=== PATIENT | male | born 1995 | race Caucasian/White ===

== ENCOUNTER → 2020-05-23 03:24 | Outpatient (REF) | payer BC, MEDICAID, SELFPAY | LOC: EDREF 03:24 | PROVIDERS: PCP Pediatrics | DX: R69 Illness, unspecified (principal) ==

== ENCOUNTER 2022-02-20 16:36 | Emergency (ER) | payer MEDICAID, SELFPAY ==
[2022-02-20 16:36] VITALS: BP 133/97; PULSE 104; RESP 18; TEMP 36.6; O2SAT 96; BMI 25.7
--- NOTE | 2022-02-20 16:55 | RAD_ITS ---
STUDY: LEFT HAND X-RAY SERIES OF 1706 HOURS ON 02/20/2022 REASON FOR EXAM: 26-year-old male who sustained a laceration of fingers from tremors. TECHNIQUE: 3 view(s) of the hand. COMPARISON: None. FINDINGS: There are bandages around the second through fourth fingers. There is no identification of fractures or dislocations. No osseous lytic, sclerotic or mass lesions evident. There is no current evidence of osteomyelitis or periostitis. There is mild soft tissue swelling and lacerations of the second through fourth fingers. RAD/Hand Min 3 Views IMPRESSION: 1. No fractures or dislocations. 2. Bandages surrounding the second through fourth fingers. 3. Soft tissue swelling and lacerations of the second through fourth fingers. Electronically Signed: James Cameron MD at 17:11 EDT ,
--- NOTE | 2022-02-20 18:12 | EDS_ITS ---
HPI History of Present Illness Chief Complaint: Laceration Narrative Narrative: Patient presents laceration of the second third and fourth digits with hedge tremors. Tetanus is not up-to-date. No other injuries. He has no distal paresthesias. He is able to flex his digits PFSH PFS Medical History no medical history Home Medications dextroamphetamine-amphetamine [Adderall 30 mg Tablet] 30 mg PO DAILY 01/27/14 [History Last Taken 01/27/14 30 MG] benzonatate 200 mg PO TID PRN PRN #20 capsule 03/11/15 [Rx Last Taken Unknown] cephalexin 500 mg PO Q6 #20 cap 02/20/22 [Rx Last Taken Unknown] Allergy/AdvReac Type Severity Reaction Status Date / Time No Known Allergies Allergy Verified 02/20/22 16:37 Family History no significant family his Surgical History no surgical history Social History Smoking Status: Unknown if ever smoked ROS ROS ED ROS Narrative Past medical history: none Medications: Reviewed Social history: Noncontributory Review of systems: Musculoskeletal: Finger lacerations as in HPI Skin: Lacerations Neurological: No weakness or paresthesias Hematologic: No easy bleeding or easy bruising EXAM Physical Exam Narrative Exam Narrative: Physical exam General: Patient does not appear in significant distress . Head: Normocephalic, Atraumatic Neck: No C-spine tenderness Cardiovascular: Normal distal pulses Back: Nontender, Normal Inspection. Extremities: Second digit shows a V-type laceration over the palmar side of the middle phalanx region, its about a 2 cm laceration, the third digit has a 4 cm flap laceration over the distal phalanx also on the volar side, the fourth digit has a 4 cm laceration that is also in the volar distal phalanx region it is horizontal with a vertical laceration splitting it. All 3 digits have normal flexor tendon function, I cannot visualize the flexor tendon. Distal sensation is intact. Capillary refill is about 1 second. Skin: As above Neurological: Normal strength and sensation Const Vital Signs: 02/20/22 16:36 Temperature 97.9 F Temperature Source Temporal Pulse Rate 104 H Respiratory Rate 18 Blood Pressure 133/97 H Blood Pressure Mean 109 Pulse Ox 96 Oxygen Delivery Method Room Air PROC Procedures Lacerations finger : Length: 3.94 in Depth: Skin Shape: Flap Prep: Disha Laceration repair: Debrideded, Foreign material removed, Irrigated, Lidocaine, Local and Skin sutures Number of Sutures/[place]: 18 Suture Information: Ethilon and 4-0 Comment: This is a complex laceration, the borders were revised, foreign body material was removed, multiple flaps and jagged edges. MDM MDM MDM Narrative Medical decision making narrative: Wound was cleaned, I sutured it, see procedure note. Patient was given tetanus, because I removed foreign body in the form of dirt and grass even though I cleaned quite well I will place the patient on antibiotics. Radiography Diagnostic Testing: Clinical Impression(s) from Imaging Studies Hand X-Ray 02/20/22 16:55 IMPRESSION: 1. No fractures or dislocations. 2. Bandages surrounding the second through fourth fingers. 3. Soft tissue swelling and lacerations of the second through fourth fingers. Electronically Signed: James Cameron MD at 17:11 EDT Reading Location ID and State: [facility] [place] Tel , Service support , X-ray read by me and radiologist is normal without any evidence of bone fracture Discharge Plan Triage Chief Complaint: Laceration ED Provider: Markell Sims Dx/Rx/DC Orders Clinical Impression: Finger laceration, Finger injury Instructions: ED Laceration, Hand: All Closures, ED Laceration Hand with ... Prescriptions: New cephalexin 500 mg capsule 500 mg PO Q6 Qty: 20 RF: 0 No Action dextroamphetamine-amphetamine [Adderall] 30 MG tablet 30 mg PO DAILY RF: 0 benzonatate 100 MG capsule 200 mg PO TID PRN PRN (Reason: Cough) Qty: 20 RF: 0 Primary Care Provider: Fatimah Gunter Referrals: Fatimah Gunter MD [Primary Care Provider] - Dimitri Richardson DO [STAFF PHYSICIAN] - 3-5 Days (for wound check 10 days for suture removal ) Disposition Disposition: Home, Self Care
[2022-02-20] MEDS: Diphth,Pertuss(Acell),Tet Vac 0.5 ML Vial IM (18:18)
[2022-02-20] MEDS: Lidocaine 1% (20 ml mdv) 20 ML Vial 10 ML INFILT (18:19)
[2022-02-20 19:55] VITALS: PULSE 74; RESP 15
== END 2022-02-20 20:03 | disposition home or self-care (01) ==
PROVIDERS: Emergency Provider Emergency Medicine; PCP Pediatrics; Visit Provider Emergency Medicine
DX: S61.221A Laceration with foreign body of left index finger without damage to nail, initial encounter (principal); S61.223A Laceration with foreign body of left middle finger without damage to nail, initial encounter; S61.225A Laceration with foreign body of left ring finger without damage to nail, initial encounter; W29.3XXA Contact with powered garden and outdoor hand tools and machinery, initial encounter
CPT/HCPCS: 12004; 73130; 90715; 99282